=== PATIENT | female | born 1975 | race Caucasian/White ===

== ENCOUNTER → 2018-02-18 | Outpatient (CLI) | payer BC ==
--- NOTE | 2018-02-19 12:10 | US ---
EXAM DESCRIPTION: Breast,Bilateral: Ultrasound CLINICAL HISTORY: 42 yearsFemaleMASTODYNIA. Lateral left breast. COMPARISON: Digital diagnostic tomosynthesis bilateral breasts on this visit. No prior ultrasound or breast mammograms available. TECHNIQUE: Transcutaneous scanning of the bilateral breast utilizing reyez-scale and Doppler modes. Scanning performed by the hat conditioner and Dr. Kenney. FINDINGS: Bilateral breasts demonstrate mixed fibroglandular and fatty echotexture. Scanning of the undersurface of the anterior middle third of the left breast. Emphasis at the 6:00 position, 4 cm from the nipple. No dominant solid mass or distinct cyst. No parenchymal edema or large calcifications. No overlying skin changes. Normal vascularity. Scanning medial right breast anterior middle third with emphasis at the 3:00 position 4 cm from the nipple. No dominant solid mass or distinct cyst. No parenchymal edema or large calcifications. No overlying skin changes. Normal vascularity. IMPRESSION: 1. Bi-Rads Category 2: Benign. 2. Please refer to bilateral diagnostic digital breast tomosynthesis examination and report on this visit. The FINDINGS and the FOLLOW-UP plan were reviewed in person with the patient after the examination. Written communication explaining the IMPRESSION and FOLLOW-UP will be mailed to the patient and referring care provider. Electronically signed by: Sam Kenney MD 02/19/2018 12:09 PM TECHNICAL OPERATIONS VICE PRESIDENT
--- NOTE | 2018-02-19 16:59 | MAM ---
EXAM DESCRIPTION: 3D Diagnostic, Bilateral: Digital Mammography CLINICAL HISTORY: 42 yearsFemaleMASTODYNIA . Pain lateral left breast. No personal or family history of breast cancer. Childbirth. Premenopausal. No HRT prior benign left breast biopsy. Lifetime risk of developing breast cancer (Tyrer-Cuzick model) percentage is 4.4. COMPARISON: Baseline study at this facility. No prior reports available.. Targeted bilateral breast ultrasound included with this examination. TECHNIQUE: Bilateral CC LM MLO projection full-field images, digital mammographic tomosynthesis technique. CAD not utilized. FINDINGS: The breast parenchymal density pattern is: Heterogeneously dense breast tissue, which may obscure small masses. No skin thickening or nipple retraction focal asymmetry in the medial left breast, middle third, approximately 4.5 cm from the nipple. Not associated with microcalcifications. Focal asymmetry in the junction of the anterior middle third of the left breast at the 6:00 position, approximately 3 cm from the nipple. Not associated with microcalcifications. Dense fibroglandular tissues bilaterally are predominantly in the middle third with extension laterally. No abnormal microcalcifications. ULTRASOUND: Bilateral breasts demonstrate mixed fibroglandular and fatty echotexture. Scanning of the undersurface of the anterior middle third of the left breast. Emphasis at the 6:00 position, 4 cm from the nipple. No dominant solid mass or distinct cyst. No parenchymal edema or large calcifications. No overlying skin changes. Normal vascularity. Scanning medial right breast anterior middle third with emphasis at the 3:00 position 4 cm from the nipple. No dominant solid mass or distinct cyst. No parenchymal edema or large calcifications. No overlying skin changes. Normal vascularity. IMPRESSION: Benign exam. BIRAD CATEGORY: 2 BENIGN FINDINGS. RECOMMENDATIONS: FOLLOW UP: Return to routine digital bilateral mammographic screening, one year interval from February 2018. The FINDINGS and the FOLLOW-UP plan were reviewed in person with the patient after the examination. Written communication explaining the IMPRESSION and FOLLOW-UP will be mailed to the patient and referring care provider. According to the [employer], yearly mammograms are recommended starting at age 40 and continuing as long as a woman is in good health. Any breast change noted on a breast self-exam should be reported promptly to the patient's healthcare provider. Breast MRI is recommended for women with an approximately 20-25% or greater lifetime risk of breast cancer, including women with a strong family history of breast or ovarian cancer and women who have been treated for Hodgkin's disease. A negative mammographic report should not delay tissue diagnosis in patients with significant clinical history or physical findings. Extremely dense breast tissue limits the sensitivity of digital mammography. Electronically signed by: Sam Kenney MD 02/19/2018 4:58 PM [facility]
== END ==
LOC: MAMMO 14:05
PROVIDERS: ATTEND Family Medicine
DX: N64.4 Mastodynia (principal)
CPT/HCPCS: 76641; 77066; G0279